=== PATIENT | male | born 1995 | race Caucasian/White ===

== ENCOUNTER 2021-07-10 16:24 | Emergency (ER) | payer SELFPAY ==
[~2021-07-10] VITALS: Ht 172.7 cm; Wt 72.3 kg
[2021-07-10] MEDS ORDERED: IV NORMAL SALINE 1,000ML 1,000 ML IV ONE (16:30)
--- NOTE | 2021-07-10 16:35 | PHYS DOC ---
Adult General HPI HPI Patient is an approximately 30-year-old male presenting via POV for overdose. Patient brought in by female who reportedly does not know patient. States she does not know how she found him but reports that she found patient unconscious, nonverbal and not responsive to verbal stimuli prompting her to put him in her vehicle and transported him to our facility. He has no known medical issues. Review of Systems Review of Systems Unobtainable due to acute respiratory depression and overall mentation of the patient Physical Exam Physical Exam Constitutional: Approximately 33-year-old male ill-appearing, appears acutely intoxicated and diaphoretic GCS 3 HENT: Normocephalic, atraumatic, bilateral external ears normal, oropharynx moist, no oral exudates, nose normal. Eyes: PERRLA, pupils constricted 2 mm bilaterally, conjunctiva normal, no discharge. Neck: Normal range of motion, no tenderness, supple, no stridor. Cardiovascular: Heart rate tachycardic, sinus rhythm, no murmurs rubs or gallops Lungs & Thorax: Shallow breathing, respiratory rate 5 Abdomen: Bowel sounds normal, soft, no masses, no pulsatile masses. Nonsurgical abdomen, no peritoneal signs Skin: Warm, clammy and diaphoretic, no erythema, no rash. Patient does have track calderón present to bilateral flexor portions of upper extremities Back: No tenderness, no CVA tenderness. Extremities: No tenderness, no cyanosis, no clubbing, ROM intact, no edema. Neurologic: GCS 3 Psychologic: Unable to evaluate Current Patient Data Vital Signs Vital Signs Date Time Temp Pulse Resp B/P (MAP) Pulse Ox O2 Delivery O2 Flow Rate FiO2 07/10/21 16:25 97.8 110 8 143/83 (103) 67 Room Air Vital Signs Date Time Temp Pulse Resp B/P (MAP) Pulse Ox O2 Delivery O2 Flow Rate FiO2 07/10/21 17:40 107 20 122/73 (89) 98 Room Air 07/10/21 16:25 97.8 Lab Results Laboratory Tests Test 07/10/21 16:35 White Blood Count 12.0 x10^3/uL Red Blood Count 5.25 x10^6/uL Hemoglobin 16.0 g/dL Hematocrit 48.3 % Mean Corpuscular Volume 92 fL Mean Corpuscular Hemoglobin 30 pg Mean Corpuscular Hemoglobin Concent 33 g/dL Red Cell Distribution Width 13.2 % Platelet Count 241 x10^3/uL Neutrophils (%) (Auto) 44 % Lymphocytes (%) (Auto) 41 % Monocytes (%) (Auto) 12 % Eosinophils (%) (Auto) 3 % Basophils (%) (Auto) 1 % Neutrophils # (Auto) 5.3 x10^3uL Lymphocytes # (Auto) 4.9 x10^3/uL Monocytes # (Auto) 1.4 x10^3/uL Eosinophils # (Auto) 0.3 x10^3/uL Basophils # (Auto) 0.1 x10^3/uL Sodium Level 141 mmol/L Potassium Level 3.9 mmol/L Chloride Level 101 mmol/L Carbon Dioxide Level 31 mmol/L Anion Gap 9 Blood Urea Nitrogen 20 mg/dL Creatinine 1.1 mg/dL Estimated GFR (Cockcroft-Gault) 80.3 BUN/Creatinine Ratio 18 Glucose Level 135 mg/dL Calcium Level 9.1 mg/dL Total Bilirubin 0.2 mg/dL Aspartate Amino Transf (AST/SGOT) 78 U/L Alanine Aminotransferase (ALT/SGPT) 122 U/L Alkaline Phosphatase 82 U/L Troponin I High Sensitivity < 4 ng/L Total Protein 8.1 g/dL Albumin 3.9 g/dL Albumin/Globulin Ratio 0.9 Salicylates Level 0.9 mg/dL Salicylate Last Dose Date Unk Salicylate Last Dose Time Unk Acetaminophen Level < 2.0 mcg/mL Acetaminophen Last Dose Date Unk Acetaminophen Last Dose Time Unk Current Medications Medications (Trade) Dose Ordered Sig/Lino Route PRN Reason Start Time Stop Time Status Last Admin Dose Admin Sodium Chloride 1,000 ml @ 1,000 mls/hr 1X ONCE IV 07/10/21 16:30 07/10/21 17:29 DC 07/10/21 16:30 EKG EKG EKG ordered and interpreted by myself 1656 hrs. as sinus rhythm at 87 bpm, unremarkable intervals, extensive artifact in first half of EKG strip otherwise no obvious ischemic findings, no STEMI Radiology/Procedures Radiology/Procedures The XR CHEST 1V History: Overdose Comparison: None. Technique: AP radiograph of the chest. Findings: The lungs are adequately and symmetrically inflated. No airspace consolidation, pleural effusion or pneumothorax. The cardiomediastinal silhouette and pulmonary vasculature are within normal limits. No acute osseous abnormality. Soft tissues are unremarkable. Impression: 1. No acute cardiopulmonary process. Electronically signed by: Hardeep Lea MD (07/10/2021 5:17 PM) [id number] Heart Score C/O Chest Pain: No HEART Score for Chest Pain: HEART Score for Chest Pain Response (Comments) Value History Slighlty/Non-Suspicious 0 ECG Normal 0 Age < 45 0 Risk Factors 1 or 2 Risk Factors 1 Troponin < Normal Limit 0 Total 1 Risk Factors: Risk Factors: DM, Current or recent (<one month) smoker, HTN, HLP, family history of CAD, obesity. Risk Scores: Risk Factors: DM, Current or recent (<one month) smoker, HTN, HLP, family history of CAD, obesity. Course & Med Decision Making Course & Med Decision Making Airway not patent, shallow breathing with low respiratory rate, patient immediately extracted from car and placed into trauma room with intranasal Narcan administered with immediate reversal of patient's presenting symptoms Subsequent HPI, physical exam and comprehensive ER work-up obtained that was grossly nonconcerning for any emergent or surgical issues Patient later disclosed that he has ongoing illicit substance abuse, admits to heroin use twice daily and methamphetamine use daily with last use prior to arrival States he has never overdosed in the past. Admits he does not have having an addiction and states "I am not dependent, I can quit". PAT team evaluated patient, no HI/SI or need for inpatient psychiatric transfer at present which I agree with. Patient unwilling to give urine sample Admits he is on parole and will be checking in with officer later today. Joint decision made to discharge home with new prescription for Narcan and illicit drug cessation Angel Disclaimer Dragon Disclaimer This electronic medical record was generated, in whole or in part, using a voice recognition dictation system. Departure Departure: Impression: Primary Impression: Overdose Disposition: HOME / SELF CARE / HOMELESS Condition: STABLE Patient Instructions: Overdose, Accidental Scripts Naloxone HCl (Narcan) 4 Mg [place] 1 SPR NS ONCE for overdose for 1 Day, #1 INHALER 0 Refills Prov: YANG FRIEDMAN DO 07/10/21 YANG FRIEDMAN DO Jul 10, 2021 16:35
[2021-07-10 17:09] LABS: BASO # 0.1 x10^3/uL (0.0-0.2); BASO % 1 % (0-3); EOS # 0.3 x10^3/uL (0.0-0.7); EOS % 3 % (0-3); HEMATOCRIT 48.3 % (39.0-53.0); LYMPH # 4.9 x10^3/uL (1.0-4.8); LYMPH % 41 % (24-48); MEAN CORPUSCULAR HEMOGLOBIN 30 pg (25-35); MEAN CORPUSCULAR HGB CONC 33 g/dL (31-37); MEAN CORPUSCULAR VOLUME 92 fL (79-100); MONO # 1.4 x10^3/uL (0.0-1.1); MONO % 12 % (0-9); NEUT # 5.3 x10^3uL (1.8-7.7); NEUT % 44 % (31-73); PLATELET COUNT 241 x10^3/uL (140-400); RED BLOOD COUNT 5.25 x10^6/uL (4.30-5.70); RED CELL DISTRIBUTION WIDTH 13.2 % (11.5-14.5)
[2021-07-10 17:11] LABS: CALCIUM 9.1 mg/dL (8.5-10.1); CREATININE 1.1 mg/dL (0.7-1.3); GFR 80.3; POTASSIUM 3.9 mmol/L (3.5-5.1)
[2021-07-10 17:19] LABS: ALBUMIN 3.9 g/dL (3.4-5.0); ALBUMIN/GLOBULIN RATIO 0.9 (1.0-1.7); TOTAL BILIRUBIN 0.2 mg/dL (0.2-1.0); TOTAL PROTEIN 8.1 g/dL (6.4-8.2)
--- NOTE | 2021-07-10 17:20 | RAD ---
The XR CHEST 1V History: Overdose Comparison: None. Technique: AP radiograph of the chest. Findings: The lungs are adequately and symmetrically inflated. No airspace consolidation, pleural effusion or p neumothorax. The cardiomediastinal silhouette and pulmonary vasculature are within normal limits. No acute osseous abnormality. Soft tissues are unremarkable. Impression: 1. No acute cardiopulmonary process. Electronically signed by: Hardeep Lea MD (07/10/2021 5:17 PM) [id number]
[2021-07-10 17:23] LABS: ACETAMIN < 2.0 mcg/mL (10-30); SALIC 0.9 mg/dL (2.8-20.0)
[2021-07-10 17:40] VITALS: BP 122/73
[2021-07-10] MEDS ORDERED: NALO4SPR NS (17:53)
--- NOTE | 2021-07-10 23:02 | EKG ---
[address] [address] Test Date: 2021-07-10 Test Time: 16:49:56 Pat Name: CONCETTA OSORIO Department: Room: Gender: M Evp Marketing: MARIEL : 1995 Requested By: YANG FRIEDMAN Order Number: [id number] Reading MD: Measurements Intervals [place] Rate: 87 P: CA: QRS: 73 QRSD: 88 T: 51 QT: 350 QTc: 427 Interpretive Statements IRREGULAR RHYTHM, NO P-WAVE FOUND VENTRICULAR PREMATURE COMPLEX(ES) ABNORMAL ECG RI6.02 No previous ECG available for comparison
== END 2021-07-10 18:00 | disposition home or self-care (01) ==
LOC: ER 16:24 → EDBD 16:24 → ER 18:00
DX: T43.621A Poisoning by amphetamines, accidental (unintentional), initial encounter (principal); T40.1X1A Poisoning by heroin, accidental (unintentional), initial encounter; Y92.89 Other specified places as the place of occurrence of the external cause
CPT/HCPCS: 36415; 71045; 80053; 80329; 84484; 85025; 93005; 96360; 99285; J7030; G0480